=== PATIENT | male | born 2005 | race Caucasian/White ===

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

== ENCOUNTER 2024-11-24 09:39 | Day surgery (SDC) | payer BC ==
[2024-11-24] MEDS: Lactated Ringers 1,000 ML IV SCH (10:10)
[2024-11-24] MEDS ORDERED: Midazolam 1 MG/ML 2 ML SDV ONE ×2 (10:15)
[2024-11-24] MEDS ORDERED: Flumazenil 0.1 MG/ML 5 ML MDV ONE (10:15)
[2024-11-24] MEDS ORDERED: Ketamine 200 MG/20 ML MDV ONE ×2 (10:15)
[2024-11-24] MEDS ORDERED: Propofol 200 MG/20 ML SDV ONE (10:15)
[2024-11-24] MEDS ORDERED: fentaNYL 50 MCG/ML SDV ONE (10:15)
[2024-11-24 12:49] VITALS: BP 119/62; PULSE 63
== END 2024-11-24 11:20 | disposition home or self-care (01) ==
LOC: CC.SDS 09:39
PROVIDERS: ATTEND Family Medicine
DX: K21.00 Gastro-esophageal reflux disease with esophagitis, without bleeding (principal); K31.89 Other diseases of stomach and duodenum; K25.9 Gastric ulcer, unspecified as acute or chronic, without hemorrhage or perforation
CPT/HCPCS: 00731; 87081; J2003; J2250; J2704; J3010; J3490; J7120